=== PATIENT | female | born 1960 | race Caucasian/White ===

== ENCOUNTER → 2017-02-17 | Outpatient (CLI) | payer OTHER, SELFPAY | PROVIDERS: Visit Provider Nurse Practitioner Family | DX: R92.2 Inconclusive mammogram (principal) | CPT/HCPCS: 76641; 77065; G0206 ==

== ENCOUNTER → 2017-07-30 12:36 | Outpatient (CLI) | payer OTHER, SELFPAY ==
--- NOTE | 2017-07-30 12:42 | MM_ITS ---
MM Dig mamm DX unilat LT CAD , (Reformatted/Resubmitted report due to system order error) Ordering Physician: Monique Palacios Patient Age: 57 years: Female HISTORY: ITS.REASON: ABNORMAL MAMM Follow up very small area at 1:00 TECHNIQUE: Diagnostic mammogram with Spot views left breast COMPARISON :Previous ultrasound left breast 02/17/2017 Also previous mammogram 12/21/2015 & 02/17/2017 DIAGNOSTIC MAMMOGRAM WITH SPOT VIEWS LEFT BREAST the area of density at the medial left breast is again noted. Slightly lobulated 11 mm maximally. This similar studies dating back to 2015 but 6 month follow-up was recommended and january 2017 for this and other areas of nodularity. Today's studies show no new findings. Overall stable appearance of previous densities. minimal nodularity at the central breast is noted as well.Ultrasound is recommended to further evaluate this and other features. (A t ultrasound performed on subsequent today showed small cyst areas that appeared to correspond for the areas of density & minimal nodularity on mammography. No additional areas of significant concern) . Suggest bilateral mammogram and again left breast ultrasound again January 2018 for ongoing evaluation and confirm stability. After that hopefully annual follow-up would be adequate IMPRESSION: 1. The 11 mm density at the medial left breast is again noted... Ultrasound will be performed further evaluate this likely cyst Also note Subtle Minimal nodularity of central breast also noted.. Doubt of significance but will benefit from ultrasound Ultrasound recommended to further evaluate left breast (Note The subsequent ultrasound that showed some small cysts which appear to correspond with the areas) Left Recommend bilateral mammogram and left breast ultrasound 6 months. Resuming annual schedule . BI-RADS Category: 2 Benign Finding(s) RECOMMENDED FOLLOW-UP: 6M - 6 MONTH FOLLOW-UP.
== END ==
PROVIDERS: Family Provider Obstetrics & Gynecology; PCP Nurse Practitioner Family; Visit Provider Nurse Practitioner Family
DX: R92.8 Other abnormal and inconclusive findings on diagnostic imaging of breast (principal)
CPT/HCPCS: 77065

== ENCOUNTER → 2017-08-06 12:23 | Outpatient (CLI) | payer OTHER, SELFPAY ==
--- NOTE | 2017-08-06 12:26 | US_ITS ---
US breast LT complete (Reformatted/Resubmitted report due to system order error) Ordering Physician: Monique Palacios Patient Age: 57 years: Female HISTORY: ITS.REASON: ABNORMAL MAMM Follow up very small area at 1:00 TECHNIQUE: Ultrasound entire left breast including axillary survey COMPARISON :Previous ultrasound left breast 02/17/2017 Also previous mammogram 12/21/2015 & 02/17/2017 ========= ULTRASOUND LEFT BREAST including axillary survey 08/06/2017 On the previous ultrasound a small 5 mm area at 1:00 was identified . Today's study is to follow up this this feature as well as survey for the density medial left breast seen on recent mammogram. On today's study there is a small elongated overall benign-appearing 6 mm length x 2.6 mm AP area at 1:00 towards central breast. This is stated to be towards the central breast. Suspect is same area. This small benign area can be followed.. Likely debris-filled cyst On the second set of images from today been area at 10:00 noted and most likely reflects cluster apocrine cysts.. This would correspond with the density seen on mammography. This area measuring up to 1 cm maximally a can be followed... . This feature dates back to 2016 mammogram but is been slightly more evident on the 2016 & 2017 studies Suggest bilateral mammogram and again left breast ultrasound January 2018 for ongoing evaluation and confirm stability. After that hopefully annual follow-up would be adequate IMPRESSION: 1. No suspicious findings on today's ultrasound. 2. Likely most likely cystic areas at left breast noted: At 10:00 likely collection of tiny apocrine cyst likely accounts for appearance here.. This would correspond with the density seen on mammography. This area measuring up to 1 cm maximally a can be followed... Also Small just over 6 mm length likely debris-filled cyst at 1 o'clock position, appears benign and can be followed. Recommend bilateral mammogram and left breast ultrasound 6 months. Resuming annual schedule . BI-RADS Category: 2 Benign Finding(s) RECOMMENDED FOLLOW-UP: 6M - 6 MONTH FOLLOW-UP.
== END ==
PROVIDERS: Family Provider Obstetrics & Gynecology; PCP Nurse Practitioner Family; Visit Provider Nurse Practitioner Family
DX: R92.8 Other abnormal and inconclusive findings on diagnostic imaging of breast (principal)
CPT/HCPCS: 76641

== ENCOUNTER → 2017-12-30 13:46 | Outpatient (CLI) | payer OTHER, SELFPAY ==
--- NOTE | 2017-12-30 13:52 | US_ITS ---
MM Dig mamm BI DX w/CAD, US breast LT complete INDICATION: 6 month follow-up left breast, previous abnormal mammogram ORDERING PHYSICIAN: Monique Palacios PATIENT AGE: 57 years COMPARISON: 07/30/2017, 02/17/2017, 01/31/2017 TECHNIQUE: Standard images performed along spot compression views and left breast ultrasound FINDINGS: Average fibroglandular tissue. Right breast: Benign-appearing calcifications scattered fibroglandular elements. Possible nodular density in the central aspect of the right breast which did appear to compress out. Left breast: Asymmetric nodular density once again noted involving the medial aspect of the left breast at 12 mm similar to 07/30/2017. Left breast ultrasound: Complex 6 mm cyst at 1:00 Complex cystic lesion at 10:00 measuring 10 mm similar to the previous exam. No new nodules evident IMPRESSION: Probably findings, no convincing evidence of malignancy. No change in the complex cystic lesions of the left breast. Would still suggest 6 month follow-up to confirm stability. Would also recommend 6 month mammographic follow-up on the right due to the probably benign asymmetric nodular density which did appear to compress out. Recommend 6 month bilateral mammographic follow-up and left breast ultrasound follow-up BI-RADS Category: 3 Probably Benign Finding Short Term Follow-up RECOMMENDED FOLLOW-UP: 6M - 6 MONTH FOLLOW-UP (A letter has been sent to the patient regarding results of the study.)
== END ==
PROVIDERS: PCP Nurse Practitioner Family; Visit Provider Nurse Practitioner Family
DX: R92.2 Inconclusive mammogram (principal)
CPT/HCPCS: 76641; 77066

== ENCOUNTER → 2018-04-28 14:31 | Outpatient (CLI) | payer OTHER, SELFPAY ==
--- NOTE | 2018-04-28 | US_ITS ---
US Arterial Ankle Brachial Ind History: Smoker, hypertension, bilateral rest pain, bilateral claudication ORDERING PHYSICIAN: Monique Palacios PATIENT AGE: 57 years TECHNIQUE: Segmental pressures obtained of both right and left leg. These are compared to brachial blood pressure to yield index at each level sampled including summary GEORGI. The data sheets from the procedure are available in PACS FINDINGS Rest study only performed today No prior studies available for comparison. Blood pressures reported are in millimeters mercury. RIGHT LEG GEORGI = 1.1. RIGHT LEG TBI=0.8 Brachial BP: 144 Thigh BP: 146 Calf BP: 163 Ankle PT: 159 Ankle DP : 153 Digit =119 LEFT LEG GEORGI = 1.1 LEFT LEG TBI= 0.6 Brachial BPD: 138 Thigh BP: 153 Calf BP: 155 Ankle PT:160 Ankle DP: 148 Digit = 83 Pulses and waveforms: Normal IMPRESSION: The ABIs as reported above are within normal limits. Waveforms and pulses are also unremarkable. Left TBI slightly low at 0.6 suggesting small vessel disease
== END ==
PROVIDERS: PCP Nurse Practitioner Family; Visit Provider Nurse Practitioner Family
DX: G60.3 Idiopathic progressive neuropathy (principal)
CPT/HCPCS: 93922

== ENCOUNTER → 2019-01-17 09:34 | Outpatient (CLI) | payer OTHER, SELFPAY ==
--- NOTE | 2019-01-17 09:37 | MM_ITS ---
PROCEDURE: MM DIG SCREENING MAMM BI W/CAD CLINICAL INDICATION: SCREENING There is no personal or family history of breast cancer COMPARISON: [id number] DIG MAMM-DX UNI A/VWS-LT W/CAD from 02/17/2017 DXLT MM Dig mamm DX unilat LT CAD from 07/30/2017 DXBI MM Dig mamm BI DX w/CAD from 12/30/2017 TECHNIQUE: Standard CC and MLO images were obtained. R2 CAD reviewed. FINDINGS: Moderate fibroglandular densities are seen in the central portions and subareolar regions of both breasts. There are few benign-appearing microcalcifications in each breast. There is a stable nodular density central portion right breast seen on the CC exam but difficult to appreciate on MLO view. I suspect this represents asymmetric glandular tissue. There are no suspicious microcalcifications. IMPRESSION: Moderate breast density with no suspicious lesions seen BI-RAD Category: 2 Benign Finding(s) FOLLOW-UP: 1YR 1 Year Follow-up (A letter has been sent to the patient regarding results of the study.) Dictated by: Dr. Terrance Orr MD 01/21/2019 09:[address] Terrance Orr MD in [place] 01/21/2019 09:41
== END ==
PROVIDERS: PCP Nurse Practitioner; Visit Provider Nurse Practitioner
DX: Z12.31 Encounter for screening mammogram for malignant neoplasm of breast (principal)
CPT/HCPCS: 77067

== ENCOUNTER → 2019-04-18 14:08 | Outpatient (POV) | payer OTHER, SELFPAY | PROVIDERS: PCP Specialist; Visit Provider Specialist | DX: M79.605 Pain in left leg (principal); M79.604 Pain in right leg; R20.8 Other disturbances of skin sensation | CPT/HCPCS: 95886; 95909 ==

== ENCOUNTER → 2019-06-14 11:16 | Outpatient (CLI) | payer OTHER, SELFPAY ==
--- NOTE | 2019-06-14 11:22 | MR_ITS ---
PROCEDURE: MR KNEE LT WO CON CLINICAL INDICATION: PAIN IN LEFT KNEE Left knee pain COMPARISON: No exams were available for comparison TECHNIQUE: Routine multiplanar multi echo sequences are performed without gadolinium enhancement. FINDINGS: The anterior cruciate ligament has an abnormal appearance. The fibers of the ACL are very sparse and there is diffuse increase in T2 signal along the path of the ACL. This has decreased T1 signal consistent with a high-grade injury/ACL tear please correlate with physical exam. The posterior cruciate ligament has an unremarkable appearance. The collateral ligaments, patellar tendon, and quadriceps tendon have an unremarkable appearance. There is a complex tear involving the mid aspect and posterior horn the medial meniscus. The patellar cartilage is preserved. There is focal increase in T2 signal involving the anterior aspect and central aspect of the proximal tibia suggesting bone bruise. Increased T2 signal also involves the medial and posterior aspect of the lateral femoral condyle and may represent an additional area bone bruise or or bone marrow edema which could be seen from an ACL tear. There are mild osteoarthritic changes of the patellofemoral joint as well as the medial and lateral compartments. There is a small knee joint effusion. IMPRESSION: 1. There is complex meniscal tear involving the body and posterior horn of the medial meniscus. 2. Abnormal appearance of the ACL with diffuse edema at the expected path of the ACL with only a few fibers noted consistent with high-grade injury/tear of the ACL. Mucoid degeneration could have a similar appearance however, there is also abnormal signal intensity at the proximal tibia and at the distal femur areas at the expected insertion of the ACL which are suspicious for bone bruises or trauma from ACL tear. Please correlate with physical exam Dictated by: Paresh Stanley MD 06/15/2019 15:19 Electronically signed by Paresh Stanley MD in [place] 06/15/2019 15:19
== END ==
PROVIDERS: PCP Specialist; Visit Provider Orthopaedic Surgery Adult Reconstructive Orthopaedic Surgery
DX: M25.562 Pain in left knee (principal)
CPT/HCPCS: 73721

== ENCOUNTER 2019-09-14 11:00 | Outpatient (RCR) | payer OTHER, SELFPAY | END 2019-10-05 11:53 | disposition home or self-care (01) | LOC: PT.CARL 11:00 | PROVIDERS: PCP Specialist; Visit Provider Orthopaedic Surgery Adult Reconstructive Orthopaedic Surgery | DX: S83.242A Other tear of medial meniscus, current injury, left knee, initial encounter (principal) | CPT/HCPCS: 97014; 97110; 97163; G0283 ==

== ENCOUNTER → 2019-11-21 13:34 | Outpatient (CLI) | payer OTHER, SELFPAY ==
--- NOTE | 2019-11-21 13:39 | XR_ITS ---
PROCEDURE: XR FOOT WT BEARING LT 3V CLINICAL INDICATION: pain COMPARISON: CR FTL3 FOOT-LT-3 VIEWS from 02/15/2016 FINDINGS: No fracture or dislocation. No lytic or blastic change. There is normal mineralization. There are mild osteoarthritic changes at the talonavicular joint. There is a small calcaneal spur. Other findings:None. IMPRESSION: No acute findings. Dictated by: Paresh Stanley MD 11/21/2019 16:17 Paresh Stanley MD in [place] 11/21/2019 16:17
--- NOTE | 2019-11-21 13:39 | XR_ITS ---
PROCEDURE: XR FOOT WT BEARING RT 3V CLINICAL INDICATION: pain COMPARISON: CR FTL3 FOOT-LT-3 VIEWS from 02/15/2016 FINDINGS: No fracture or dislocation. No lytic or blastic change. There is normal mineralization. The joint spaces are well-preserved. No significant degenerative/arthritic changes. No erosive changes evident. Other findings:There is flexion of the 2nd toe and 3rd toe. There is a small calcaneal spur and there is an enthesophyte at the Achilles insertion. IMPRESSION: No acute findings. Dictated by: Paresh Stanley MD 11/21/2019 16:16 Paresh Stanley MD in [place] 11/21/2019 16:16
== END ==
PROVIDERS: PCP Nurse Practitioner; Visit Provider Podiatrist
DX: M79.672 Pain in left foot (principal); M79.671 Pain in right foot
CPT/HCPCS: 73630

== ENCOUNTER 2019-12-06 13:00 | Outpatient (RCR) | payer OTHER, SELFPAY | END 2019-12-26 15:00 | disposition home or self-care (01) | LOC: PT.CARL 13:00 | PROVIDERS: Visit Provider Orthopaedic Surgery Adult Reconstructive Orthopaedic Surgery | DX: M51.36 Other intervertebral disc degeneration, lumbar region (principal) | CPT/HCPCS: 97010; 97014; 97035; 97110; 97140; 97163; G0283 ==

== ENCOUNTER → 2019-12-14 15:35 | Outpatient (CLI) | payer OTHER, SELFPAY ==
--- NOTE | 2019-12-14 15:39 | MR_ITS ---
PROCEDURE: MR LUMBAR SPINE WO CON CLINICAL INDICATION: LOW BACK PAIN LBP. HX BACK SURGERY IN 04-04. INTERMITTENT LEG WEAKNESS. NO PRIOR. COMPARISON: CT ABDPELW CT ABD PELVIS W/ CONTRAST from 08/03/2014 MR MR KNEE LT WO CON from 06/14/2019 TECHNIQUE: Standard multiplanar multiecho sequences are performed without contrast. 3-D MIP and myelographic images are also rendered and reviewed FINDINGS: There is normal alignment. The spinal cord ends at the L1-L2 level. There is mild degenerative disc disease at T10-T11 and T11-T12. T12-L1 has an unremarkable appearance as does L1-L2 L2-L3 and L3-L4. L4-5: Mild bulging disc. There is a small broad-based left foraminal and lateral disc protrusion causing moderate left-sided foraminal narrowing. There is facet ligamentum hypertrophy at this level. L5-S1: Mild bulging disc slightly eccentric toward the left. There has been prior laminectomy on the left at L5-S1. IMPRESSION: 1. L4-5: Mild bulging disc. There is a small broad-based left foraminal and lateral disc protrusion causing moderate left-sided foraminal narrowing. There is facet ligamentum hypertrophy at this level. 2. L5-S1: Mild bulging disc slightly eccentric toward the left. There has been prior laminectomy on the left at L5-S1. 3. No extruded herniated disc or canal stenosis. Dictated by: Paresh Stanley MD 12/15/2019 15:08 aPresh Stanley MD in [place] 12/15/2019 15:08
== END ==
PROVIDERS: PCP Nurse Practitioner; Visit Provider Orthopaedic Surgery Adult Reconstructive Orthopaedic Surgery
DX: M54.5 Low back pain (principal)
CPT/HCPCS: 72148; 76376

== ENCOUNTER → 2020-06-21 10:34 | Outpatient (CLI) | payer OTHER, SELFPAY ==
--- NOTE | 2020-06-21 10:41 | MM_ITS ---
PROCEDURE INFORMATION: Exam: MG Screening 3D Mammography Exam date and time: 06/21/2020 10:41 AM Age: 59 years old Clinical indication: Screening exam; No personal or family HX of malignancy TECHNIQUE: Imaging protocol: Screening tomosynthesis and 2D mammography including computer-aided detection (CAD) when performed. COMPARISON: No relevant prior studies available. FINDINGS: MAMMOGRAPHY: Breast composition: The breast tissue is composed of scattered areas of fibroglandular density. Mass: None. Architectural distortion: None. Calcifications: No suspicious calcifications. Asymmetric density: None. Skin thickening: None. Axillary adenopathy: None. IMPRESSION: No mammographic evidence of malignancy. Annual screening is recommended unless otherwise clinically indicated. ASSESSMENT: BI-RADS Category 1: Negative
== END ==
PROVIDERS: PCP Nurse Practitioner; Visit Provider Nurse Practitioner
DX: Z12.31 Encounter for screening mammogram for malignant neoplasm of breast (principal)
CPT/HCPCS: 77063; 77067

== ENCOUNTER → 2022-03-05 12:55 | Outpatient (CLI) | payer OTHER, SELFPAY ==
--- NOTE | 2022-03-05 13:04 | XR_ITS ---
FINAL REPORT CLINICAL HISTORY: Left foot pain COMPARISON: 11/21/2019 FINDINGS: LEFT FOOT Three views demonstrate no acute fracture or dislocation. There are mild degenerative changes in the hindfoot. Moderate calcaneal spurring is stable. No acute soft tissue abnormality is seen. IMPRESSION: No acute process. Reviewed, Interpreted and Dictated by Charan Orourke MD Transcribed by Mi Slade Authenticated and [facility]
== END ==
PROVIDERS: PCP Nurse Practitioner; Visit Provider Podiatrist
DX: M79.671 Pain in right foot (principal)
CPT/HCPCS: 73630